=== PATIENT | female | born 1975 | race Two or more races ===

== ENCOUNTER 2020-11-24 12:15 | Emergency (ER) | payer OTHER ==
[~2020-11-24] VITALS: Ht 157.5 cm; Wt 95.3 kg
--- NOTE | 2020-11-24 12:40 | NUR ---
BIB C/O L KNEE PAIN STARTED TODAY. "I HEARD A POP WHILE WALKING" PATIENT A/OX4, BREATHING EVEN AND UNLABORED, NO SOB NOTED.
--- NOTE | 2020-11-24 12:50 | NUR ---
DR. ANTHONY AT BEDSIDE FOR EVAL.
[2020-11-24] MEDS ORDERED: TRAM50TA2 PO (13:56)
[2020-11-24 14:06] VITALS: BP 137/85
--- NOTE | 2020-11-24 14:07 | NUR ---
Patient discharged to home in stable condition. Written and verbal after care instructions given. Patient verbalizes understanding of instruction.
== END 2020-11-24 14:07 | disposition home or self-care (01) ==
LOC: ER 12:23
DX: S83.8X2A Sprain of other specified parts of left knee, initial encounter (principal); J45.909 Unspecified asthma, uncomplicated; E11.9 Type 2 diabetes mellitus without complications; Z79.899 Other long term (current) drug therapy; X50.1XXA Overexertion from prolonged static or awkward postures, initial encounter; Y93.89 Activity, other specified; Y92.89 Other specified places as the place of occurrence of the external cause; Y99.8 Other external cause status
CPT/HCPCS: 73564-TC